=== PATIENT | female | born 1980 | race Caucasian/White ===

== ENCOUNTER 2017-01-16 07:02 | Day surgery (SDC) | payer MEDICAID, OTHER ==
[2017-01-15 12:09] VITALS: BMI 30.2
[~2017-01-16] VITALS: Ht 157.5 cm; Wt 76.3 kg
[2017-01-16] VITALS (13 sets, daily range): BP systolic 113–138; BP diastolic 61–83; PULSE 54–86; RESP 12–31; Ht 157.5 cm; Wt 76.3 kg
[~2017-01-16 07:02] MED LIST: CEFAZOLIN 2 GM/50 ML (PMX) 50 ML IVPB ONE; FERR240T9 PO; GLYCOPYRROLATE 0.4 MG INJ ONE; PREN-29 PO; PRENAT PO; SOD CHLORIDE 0.9% 1,000 ML IV ONE; URSO300C21 PO
[2017-01-16] MEDS ORDERED: ROCURONIUM 50 MG INJ ONE (08:10)
[2017-01-16] MEDS ORDERED: CEFAZOLIN 1 GM INJ ONE (08:10)
[2017-01-16] MEDS ORDERED: MIDAZOLAM 1 MG/ML 2 ML INJ ONE (08:10)
[2017-01-16] MEDS ORDERED: NEOSTIGMINE 3 MG/3 ML SYRINGE ONE (08:10)
[2017-01-16] MEDS ORDERED: PROPOFOL 20 ML ONE (08:10)
[2017-01-16] MEDS ORDERED: ONDANSETRON 4 MG INJ ONE (08:10)
[2017-01-16] MEDS ORDERED: FENTAnyl 50 MCG/ML VIAL ONE ×3 (08:10→09:45)
[2017-01-16] MEDS ORDERED: DEXAMETHASONE 4 MG/ML 1 ML INJ ONE (08:10)
[2017-01-16] MEDS ORDERED: BUPIVACAINE 0.25% (MPF) 30 ML INJ ONE ×2 (08:14→08:42)
[2017-01-16 08:31] LABS: BASOPHIL # 0.1 10^3/ul (0.0-0.1); BASOPHILS % 0.9 % (0.0-2.0); EOSINOPHILS # 0.1 10^3/ul (0.0-0.5); EOSINOPHILS % 0.8 % (0.0-7.0); HEMATOCRIT 39.1 % (37.0-47.0); HEMOGLOBIN 13.4 g/dl (12.0-16.0); LYMPHOCYTES # 2.6 10^3/ul (0.8-2.9); LYMPHOCYTES % 29.6 % (15.0-51.0); MEAN CORPUSCULAR HEMOGLOBIN 31.3 pg (29.0-33.0); MEAN CORPUSCULAR HGB CONC 34.3 g/dl (32.0-37.0); MEAN CORPUSCULAR VOLUME 91.4 fl (82.0-101.0); MEAN PLATELET VOLUME 10.4 fl (7.4-10.4); MONOCYTE # 0.5 10^3/ul (0.3-0.9); MONOCYTES % 5.2 % (0.0-11.0); NEUTROPHIL # 5.5 10^3/ul (1.6-7.5); PLATELET COUNT 307 10^3/UL (140-415); RED BLOOD COUNT 4.28 10^6/ul (4.20-5.40); RED CELL DISTRIBUTION WIDTH 12.3 % (11.5-14.5); WHITE BLOOD COUNT 8.7 10^3/ul (4.8-10.8)
[2017-01-16 08:37] LABS: ALBUMIN/GLOBULIN RATIO 1.21; BILIRUBIN,INDIRECT 0.5 mg/dl (0-1.1); BILIRUBIN,TOTAL 0.5 mg/dl (0.2-1.3); TOTAL PROTEIN 7.3 g/dl (6.1-8.1)
[2017-01-16 08:43] LABS: INR 0.91; PROTIME 12.3 Sec (12.2-14.2)
[2017-01-16 08:44] LABS: PARTIAL THROMBOPLASTIN TIME 27.7 Sec (25.0-35.0)
[2017-01-16 08:47] LABS: CALCIUM 9.2 mg/dl (8.4-10.2); CREATININE 0.77 mg/dl (0.44-1.00); POTASSIUM 4.2 mmol/L (3.5-5.1)
--- NOTE | 2017-01-16 09:34 | OPR ---
Date/Time of Note Date/Time of Note DATE: 01/16/17 TIME: 09:31 Operative Report Procedure Date: Jan 16, 2017 Preoperative Diagnosis symptomatic gallstones Postoperative Diagnosis same Operation/Procedure Performed 1. laparoscopic cholecystectomy 2. therapeutic injection of subcutaneous local anesthesia Surgeon see signature line Handbag Operator none Anesthesia Type: general Estimated Blood Loss: 0 - 10 ml's Transfusion none Specimen gallbladder Grafts/Implants none Complications none Pt Condition Post Procedure: stable Indications This is a 36-year-old female with benign gallstones. She requests surgical excision of her gallbladder. Risks alternatives benefits and percent were discussed the patient. Patient expresses understanding and consents to the operation. Procedure Description Patient is taken to the OR and prepped and draped in usual sterile fashion. Surgical timeout was performed. IV antibiotics given. Supraumbilical midline incision was made with a 15 blade. Dissection Carrs carried onto the fascia. The fascia is divided. Blueness on trocar is introduced pneumoperitoneum is established. Midepigastric 12 mm optical trocar was placed under direct visualization. Right upper quadrant upper flank 5 mm optical trochars were placed under direct visualization. Upon initial inspection there is adhesions to the gallbladder which were taken down bluntly. The gallbladder was grasped by the fundus in a lateral and our direction. The cautery was used to mobilize laterally. This allowed careful dissection of the cystic duct and cystic artery. The cystic duct and divided with 3 clips proximal and distal end is divided with a 35 mm echelon vascular stapler because of thickened tissues. The cystic artery was divided with 3 clips proximal and clip distal. The gallbladder was taken off the gallbladder bed. There is good hemostasis in the surgical site. The gallbladder is retrieved using Endo Catch bag. Ports removed under direct visualization. The supraumbilical midline incision is closed [id number] 0 Vicryl suture. Skin is closed using skin justus. Therapeutic subcutaneous local anesthesia was injected throughout the incision sites. Dry dressings were applied. Pascual MULLEN Jan 16, 2017 09:34
[2017-01-16] MEDS ORDERED: HYDROCODONE/APAP (5/325) TAB PO ONE (10:00)
[2017-01-16] MEDS ORDERED: OXYCODONE/ACETAMINOPHEN (5/325) TAB PO PRN ×2 (10:30)
[2017-01-16] MEDS ORDERED: FENTAnyl 50 MCG/ML VIAL IV PRN ×3 (10:30)
[2017-01-16] MEDS ORDERED: MEPERIDINE 25 MG INJ IV PRN (10:30)
[2017-01-16] MEDS ORDERED: IPRATROPIUM (NEB) 0.5 MG/2.5 ML AMP HHN PRN (10:30)
[2017-01-16] MEDS ORDERED: MIDAZOLAM 1 MG/ML 2 ML INJ IV PRN (10:30)
[2017-01-16] MEDS ORDERED: hydrALAzine 20 MG INJ IV PRN (10:30)
[2017-01-16] MEDS ORDERED: EPHEDrine SULFATE 50 MG/5 ML SYG IV PRN (10:30)
[2017-01-16] MEDS ORDERED: ALBUTEROL 0.083% (NEB) 2.5 MG/3 ML AMP HHN PRN (10:30)
[2017-01-16] MEDS ORDERED: ONDANSETRON 4 MG INJ IV PRN (10:30)
[2017-01-16] MEDS ORDERED: TRIMETHOBENZAMIDE 100 MG/ML VIAL IM PRN (10:30)
[2017-01-16] MEDS ORDERED: HYDROmorphONE (0.2 MG/ML) 10ML SYG IV PRN ×3 (10:30)
[2017-01-16] MEDS ORDERED: LABETALOL HCL 20MG INJ IV PRN (10:30)
[2017-01-16] MEDS ORDERED: DIPHENHYDRAMINE 50 MG INJ IV PRN (10:30)
== END 2017-01-16 11:26 | disposition home or self-care (01) ==
LOC: SDS 07:02
PROVIDERS: ATTEND Surgery
DX: K80.10 Calculus of gallbladder with chronic cholecystitis without obstruction (principal)
CPT/HCPCS: 47562; 80053; 85025; 85610; 85730; 88304; J0690; J1100; J2250; J2405; J2710; J3010; Z7512; Z7610

== ENCOUNTER 2017-01-28 08:12 | Day surgery (SDC) | payer MEDICAID, OTHER ==
[2017-01-28] VITALS (14 sets, daily range): BP systolic 94–121; BP diastolic 48–70; PULSE 62–87; RESP 13–23; Ht 157.5 cm; Wt 74.6 kg
[~2017-01-28] VITALS: Ht 157.5 cm; Wt 74.6 kg
[~2017-01-28 08:12] MED LIST changes: +ATROPINE 1 MG/10 ML SYRINGE IV PRN; -CEFAZOLIN 2 GM/50 ML (PMX) 50 ML IVPB ONE; +DIPHENHYDRAMINE 50 MG INJ IV PRN; +EPHEDrine SULFATE 50 MG/5 ML SYG IV PRN; +FENTAnyl 50 MCG/ML VIAL IV PRN; -FERR240T9 PO; -GLYCOPYRROLATE 0.4 MG INJ ONE; +HYDROmorphONE (0.2 MG/ML) 10ML SYG IV PRN; +LABETALOL HCL 20MG INJ IV PRN; +MEPERIDINE 25 MG INJ IV PRN; +MIDAZOLAM 1 MG/ML 2 ML INJ IV PRN; +ONDANSETRON 4 MG INJ IV PRN; +OXYCODONE/ACETAMINOPHEN (5/325) TAB PO PRN; -PREN-29 PO; -PRENAT PO; -SOD CHLORIDE 0.9% 1,000 ML IV ONE; -URSO300C21 PO; +hydrALAzine 20 MG INJ IV PRN; +morphine (1 MG/ML) 10ML SYRINGE IV PRN
[2017-01-28] MEDS ORDERED: CEFAZOLIN 2 GM/50 ML (PMX) 50 ML IVPB ONE (10:30)
--- NOTE | 2017-01-28 13:33 | PDOCDIS ---
Discharge Instructions CONDITION Patient Condition: Good HOME CARE INSTRUCTIONS: Diet Instructions: Regular ACTIVITY: Activity Restrictions: No Restrictions FOLLOW UP/APPOINTMENTS Follow-up Plan 2 weeks, call for time and date SCHOOL/WORK RELEASE May return to School/Work on: Jan 29, 2017 KILO BETANCOURT Jan 28, 2017 13:33
--- NOTE | 2017-01-28 13:34 | HPN ---
Date/Time of Note Date/Time of Note DATE: 01/28/17 TIME: 13:34 Interval H&P Admission Note Pt. seen H&P reviewed: No system changes KILO BETANCOURT Jan 28, 2017 13:34
--- NOTE | 2017-01-28 13:36 | OPR ---
Date/Time of Note Date/Time of Note DATE: 01/28/17 TIME: 13:34 Operative Report Procedure Date: Jan 28, 2017 Preoperative Diagnosis urethral stricture Postoperative Diagnosis same Operation/Procedure Performed cysto - urethral dialtion Surgeon airam Paedodontist none Anesthesia Type: general Estimated Blood Loss: none Transfusion none Specimen none Grafts/Implants none Tubes/Drains none Complications none Pt Condition Post Procedure: stable Disposition: PACU Indications symptomatic urethral stricture Procedure Description dictation number [id number] KILO BETANCOURT Jan 28, 2017 13:36
--- NOTE | 2017-01-28 14:31 | OPR ---
DATE OF OPERATION: BRIEF HISTORY: Katie is a 36-year-old female with a symptomatic urethral stricture, presenting for cystoscopy and urethral dilatation. How the procedure is performed, potential complications, side effects have all been reviewed. All questions have been answered. She has signed a preoperative co nsent directed for the procedure. PREOPERATIVE DIAGNOSIS: Urethral stricture. POSTOPERATIVE DIAGNOSIS: Urethral stricture. PROCEDURE: Cystoscopy, urethral dilatation. SURGEON: Dr. Vargas. ANESTHESIA: General. FINDINGS: Urethral stricture. COMPLICATIONS: None. DRAINS: None. ESTIMATED BLOOD LOSS: None. PROCEDURE: In the operating room table in supine lithotomy position she was prepped and draped in t he usual fashion after anesthesia was induced. A timeout was undertaken, appropriate pressure point s were padded and she received preoperative antibiotic therapy. A pelvic examination demonstrated a normal pelvis and attenuated urethral opening was appreciated. An attempt for gentle insertion of the rigid cystoscope was unable to be performed due to a dense urethral stricture. Under direct vis ion, a urethral dilatation was undertaken with Sarkis sounds from 11 [place] to 22-[place]. This w as gently performed. Then, a 21-[place] rigid cystoscope was easily inserted into the bladder, inspe cted in a systematic fashion with a 12-degree and 30-degree angle lens. Bilateral ureteral orifices within normal limits. There were no foreign body, bladder stone or tumor, all consistent with a no rmal cystoscopy. Her bladder was emptied and she was transferred to recovery room in stable conditi on and will be discharged to home on [place] 5/325 one tablet p.o. q.6h. p.r.n., dispense #20, no refi ll and Pyridium 100 mg p.o. t.i.d., dispense #30, no refill. She will follow up in the office in 1 months' time. She tolerated the procedure well. Dictated By: KILO JOHN/NTS Conf#: [id number] DID#: [id number]
== END 2017-01-28 15:13 | disposition home or self-care (01) ==
LOC: SDS 08:12
PROVIDERS: ATTEND Urology
DX: N35.9 Urethral stricture, unspecified (principal); I10 Essential (primary) hypertension; I25.10 Atherosclerotic heart disease of native coronary artery without angina pectoris; I50.9 Heart failure, unspecified; E78.5 Hyperlipidemia, unspecified; K21.9 Gastro-esophageal reflux disease without esophagitis; R31.0 Gross hematuria; E66.3 Overweight; Z68.30 Body mass index [BMI] 30.0-30.9, adult; E78.1 Pure hyperglyceridemia; Z82.49 Family history of ischemic heart disease and other diseases of the circulatory system; Z87.891 Personal history of nicotine dependence
CPT/HCPCS: 52281; 84703; Z7512; Z7610

== ENCOUNTER 2017-02-02 12:55 | Emergency (ER) | payer OTHER ==
[~2017-02-02] VITALS: Ht 160 cm; Wt 65.9 kg
--- NOTE | 2017-02-02 16:13 | ERD ---
ER Documentation Chief Complaint Chief Complaint HPI 36-year-old female, status post laparoscopic cholecystectomy 1 month ago, presents to the emergency department for evaluation of one of the surgical wounds. The patient is complaining of mild irritation over the wound located in the right upper quadrant without local pain or purulent discharge. Denies fevers, chills, no abdominal pain, no diarrhea no constipation. ROS SYSTEMIC symptoms: no fever, chills, no night sweats, no weight loss EYE symptoms: No blurred vision, no eye discharge OTOLARYNGEAL symptoms: No hearing loss. No ear pain, no sore throat CARDIOVASCULAR symptoms: No chest pain or discomfort, no palpitations. PULMONARY symptoms: No dyspnea, no cough, no wheezing. GASTROINTESTINAL symptoms: No abdominal pain, no nausea, no vomiting, no diarrhea MUSCULOSKELETAL symptoms: No arthralgias, no muscle aches. NEUROLOGY symptoms: No confusion, no syncope, no numbness or tingling. SKIN: Per HPI Medications Home Meds Active Scripts Silver Sulfadiazine* (SSD*) 1% - 20 Gm Cream.gm., 1 APPLIC TOP BID for 7 Days, # 1 TUB Prov:EMILIANO CHRISTINA MD 02/02/17 Allergies Allergies: Coded Allergies: No Known Allergy (Unverified , 01/28/17) PMhx/Soc Medical and Surgical Hx: pt denies Medical Hx History of Surgery: Yes (CHOLECYSTECTOMY, BTL) Anesthesia Reaction: No Hx Neurological Disorder: No Hx Respiratory Disorders: No Hx Cardiac Disorders: No Hx Psychiatric Problems: No Hx Miscellaneous Medical Probl: No Hx Alcohol Use: No Hx Substance Use: No Hx Tobacco Use: No Smoking Status: Never smoker Physical Exam Vitals Vital Signs Date Time Temp Pulse Resp B/P Pulse Ox O2 Delivery O2 Flow Rate FiO2 02/02/17 16:27 98.7 74 16 120/72 99 Physical Exam Patient is in no acute distress, vital signs stable. Alert and fully oriented. EYES: PERRLA, EOMI, Sclera and conjunctiva appear normal. EARS: Canals clear, tympanic membranes WNL THROAT: Normal oropharynx. NECK: Supple, No lymphadenopathy. Full ROM without pain or tenderness. HEART: RRR, no rubs, murmurs, clicks or gallops. LUNGS: Clear to auscultation. ABDOMEN: Soft, non-tender without masses or hepatosplenomegaly. Shantell-lap surgical incisions clean, dry, intact except for the one located in the right upper quadrant abdomen, which seems open, with fibrin tissue but no evidence of infection. EXTREMITIES: No edema bilaterally. BACK: Full ROM, no deformity, normal back exam NEURO: Cranial nerves grossly intact, no motor or sensory deficit Procedures/MDM 36y/o female patient status post laparoscopic cholecystectomy 1 month ago, presents to the ED for evaluation of one of the surgical incisions. Vital signs stable, Physical exam unremarkable, abdomen soft, nontender, surgical incision looks partially opened with adequate healing process without evidence of infection. Differential diagnosis include but not limited to: Wound dehiscence, cellulitis, abscess, foreign body reaction. Physical examination and clinical presentation consistent most likely with delayed surgical wound healing without evidence of infection. During the ED course the patient remained stable, no new complaints. Results and clinical impression discussed with patient who agrees with management. The patient is stable to be treated outpatient and will be discharged home with a Rx for topical Silvadene, since there is no signs of infection, antibiotics are not indicated at this time. The patient was instructed to follow up with the primary care provider in the next 48h. If symptoms persist, worsen or new symptoms develop, then patient should return to the ED immediately. Instructions explained and given directly by me to the patient in Greek with acknowledgment and demonstrated understanding. Disclaimer: Inadvertent spelling and grammatical errors are likely due to EHR/ dictation software use and do not reflect on the overall quality of patient care. Also, please note that the electronic time recorded on this note does not necessarily reflect the actual time of the patient encounter. Departure Diagnosis: Primary Impression: Delayed surgical wound healing Condition: Stable EMILIANO CHRISTINA MD Feb 02, 2017 16:13
[2017-02-02] MEDS ORDERED: SILV20CR13 TOP (16:14)
[2017-02-02 16:27] VITALS: Ht 160 cm; Wt 65.9 kg
== END 2017-02-02 16:29 | disposition home or self-care (01) ==
LOC: FTE 12:55
DX: T81.89XA Other complications of procedures, not elsewhere classified, initial encounter (principal); Y82.8 Other medical devices associated with adverse incidents
CPT/HCPCS: 99283

== ENCOUNTER 2017-07-08 08:48 | Day surgery (SDC) | END 2017-07-08 10:39 | disposition home or self-care (01) ==